=== PATIENT | male | born 1950 | race Caucasian/White ===

== ENCOUNTER → 2016-05-14 | Outpatient (CLI) | payer BC ==
[2016-05-14 12:00] LABS: EKG EKG PERFORMED
[2016-05-14 12:28] LABS: Basophils % (A) 1 %; CH 31.4; CHCM 34.1; Eosinophils % (A) 1 %; HDW 2.37; Luc # (Auto) 0.09; Luc % (Auto) 2; Lymphocytes # (A) 1.4 k/uL (1.0-4.8); Lymphocytes % (A) 24 %; MCH 30.8 pg (25.0-35.0); MCHC 33.3 g/dL (31.0-37.0); MCV 92.6 fL (80.0-100.0); Mean Platelet Volume 6.3; Monocytes # (A) 0.4 k/uL (0-1.0); Monocytes % (A) 6 %; Neutrophils # (A) 3.9 k/uL (1.3-7.7); Neutrophils % (A) 68 %; RBC 4.86 m/uL (4.30-5.90); RDW 12.4 % (11.5-15.5); WBC 5.8 k/uL (3.8-10.6); WBC (Perox) 5.73
[2016-05-14 12:36] LABS: Partial Thromboplastin Time 24.5 sec (22.0-30.0); Prothrombin Time 10.3 sec (9.0-12.0)
[2016-05-14 12:42] LABS: Appearance,Urine Clear (Clear); Bilirubin,Urine Negative (Negative); Glucose,Urine (UA) Negative (Negative); Ketones,Urine Negative (Negative); Leukocyte Esterase,Urine Negative (Negative); Nitrite,Urine Negative (Negative); PH, Urine 5.5 (5.0-8.0); Protein,Urine Negative (Negative); Specific Gravity,Urine 1.011 (1.001-1.035); UA Billing (MACRO vs. MICRO) CHEM; Urobilinogen,Urine <2.0 mg/dL (<2.0)
[2016-05-14 12:49] LABS: ALT 29 U/L (21-72); AST 21 U/L (17-59); Alkaline Phosphatase 72 U/L (38-126); Anion Gap 12 mmol/L; Blood Urea Nitrogen 23 mg/dL (9-20); Calcium 10.2 mg/dL (8.4-10.2); Carbon Dioxide 28 mmol/L (22-30); Chloride 104 mmol/L (98-107); Glucose 126 mg/dL (74-99); Non-African American GFR(MDRD) >60 (>60 ml/min/1.73 sqM); Potassium 5.2 mmol/L (3.5-5.1); Sodium 144 mmol/L (137-145); Total Bilirubin 1.3 mg/dL (0.2-1.3); Total Protein 8.5 g/dL (6.3-8.2)
== END | disposition home or self-care (01) ==
LOC: LABWHC1 11:49
PROVIDERS: ATTEND Orthopaedic Surgery
DX: Z01.810 Encounter for preprocedural cardiovascular examination (principal); Z01.812 Encounter for preprocedural laboratory examination
CPT/HCPCS: 80053; 81003; 85025; 85610; 85730; 86850; 86900; 86901; 87070; 93005

== ENCOUNTER 2016-05-25 05:50 | Inpatient (IN) | payer BC ==
[2016-05-17 16:18] VITALS: BMI 29.9
[~2016-05-25 05:50] MED LIST: ACETAMINOPHEN TAB 500 MG TAB PO ONE; DEXAMETHASONE SOD PHOSPHATE 10 MG/ML 1 ML VIAL IV ONE; HYDROmorphone 1 MG/ML 1 ML SYRINGE IVP PRN; LACTATED RINGERS 1,000 ML IV SCH; MELOXICAM 7.5 MG TAB PO ONE; MIDAZOLAM 2 MG/2 ML VIAL IV PRN; ONDANSETRON 4 MG/2 ML VIAL IVP ONE; SCOPOLAMINE 1.5MG/72HR PATCH TRANSDERM ONE; TRANEXAMIC ACID 1,000 MG in SODIUM CHLORIDE 0.9% 100 ML IVPB ONE; ceFAZolin 2 GM in SODIUM CHLORIDE 0.9% 100 ML IVPB ONE
[2016-05-25] MEDS ORDERED: LIDOCAINE 1% 20 ML VIAL (10MG/ML) FOR IV START INTRADERMA ONE (06:26)
[2016-05-25] MEDS ORDERED: ROPIVACAINE 246.25 MG, EPINEPHrine 0.5 MG, KETOROLAC 30 MG, cloNIDine HCL/PF 80 MCG, WA... MISCELLANE ONE ×5 (07:00)
[2016-05-25] MEDS ORDERED: SODIUM CHLORIDE 0.9% IRRIG 1,000 ML BTL IRRIGATION ONE (07:49)
[2016-05-25] MEDS ORDERED: TRANEXAMIC ACID 1,000 MG/10 ML VIAL ONE (07:49)
[2016-05-25] MEDS ORDERED: PHENYLEPHRINE-0.9% NACL SYG 1 MG/10 ML SYRINGE ONE (07:49)
[2016-05-25] MEDS ORDERED: SODIUM CHLORIDE 0.9% 100 ML BAG ONE (07:49)
[2016-05-25] MEDS ORDERED: fentaNYL (PF) 50 MCG/ML 2 ML AMP ONE (07:49)
[2016-05-25] MEDS ORDERED: ePHEDrine 50 MG/ML 1 ML AMP ONE (07:49)
[2016-05-25] MEDS ORDERED: PROPOFOL 10 MG/ML 20 ML VIAL IV ONE (07:49)
[2016-05-25] MEDS ORDERED: MIDAZOLAM 2 MG/2 ML VIAL ONE (07:49)
[2016-05-25] MEDS ORDERED: HEPARIN SODIUM,PORCINE 10,000 UNIT/ML 1 ML VIAL ONE (07:49)
[2016-05-25] MEDS ORDERED: LIDOCAINE 1% INJ 10MG/ML (20 ML MDV) ONE (07:49)
[2016-05-25] MEDS ORDERED: ceFAZolin 3,000 MG in SODIUM CHLORIDE 0.9% IRRIGATIO 3,000 ML IRRIGATION ONE (08:06)
[2016-05-25] MEDS ORDERED: LACTATED RINGERS 1,000 ML IV ONE (08:56)
--- NOTE | 2016-05-25 09:59 | P.OP ---
Date of Procedure: 05/25/16 Preoperative Diagnosis: Severe osteoarthritis left hip Postoperative Diagnosis: Severe osteoarthritis left hip Procedure(s) Performed: Left total hip arthroplasty with a direct anterior approach Implants: Bowden and nephew Polarstem size 6 standard [employer]den [employer] Nephew R3, 3 hole acetabular shell, 60 mm [employer]den [employer] Nephew reflection 6.5 mm cancellus screw, 20 mm, 25mm [employer]den [employer] Nephew R3, XLPE 20 acetabular liner Bowden [employer] Nephew Oxinium femoral head 36 m, -3 All components were press-fit. The articulation is ceramic on polyethylene. Anesthesia: spinal Surgeon: David Beltran Sash Maker #1: Dixie Leyva Estimated Blood Loss (ml): 150 (57 mL returned with Cell Saver) Pathology: other (Femoral head) Condition: stable Disposition: PACU Indications for Procedure: After failure of conservative treatment we discussed the surgical and nonsurgical treatment options at length. Patient wishes to proceed with a total hip arthroplasty with a direct anterior approach. Complications specific to this procedure were discussed at length, including but not limited to infection, leg length discrepancy, dislocation, and nerve injury. Patient is aware of all these complications and informed consent was obtained Operative Findings: The operative findings are consistent with severe osteoarthritis of the left hip. Description of Procedure: Patient was seen and evaluated in the preoperative area, consent was reviewed, and the surgical site was marked with a skin marker. Patient was then brought to the operating room and given prophylactic antibiotics intravenously. 1 g of Tranexamic acid was also given. A spinal anesthetic was administered by the anesthesia department. A Richter catheter was then placed by the nursing staff. The patient was then placed on the Aydlett table with the bony prominences well- padded. The hip area was then prepped and draped in usual sterile fashion. A universal timeout was then performed, which confirmed the patient's name, surgical site, ALLERGIES, and procedure being performed. Next the incision site was located at 1 cm distal and 1 cm lateral to the anterior superior iliac spine. The skin and subcutaneous tissues were sharply incised. Incision was carefully dissected down to the fascia overlying the tensor fascia gaston muscle. This fascia was then incised in line with the incision. Next, using blunt finger dissection, the tensor fascia gaston muscle was dissected off its investing fascia. The muscle was then carefully retracted laterally with a cobra retractor over the lateral neck of the femur. Next, the circumflex vessels were identified and cauterized using the AquaMantis device. The anterior hip capsule was then exposed. The capsule was then opened and an inverted T fashion. Retention sutures were placed in the inferior arms of the capsule. Cobra retractors were then placed intracapsularly. The proximal femur was then visualized. The femoral neck was then osteotomized appropriate level above the lesser trochanter. Small amount of traction was placed with the Aydlett table. A small wedge of bone was then removed from the remaining femoral head. Next, using a corkscrew femoral head was easily removed from the acetabulum. On gross visual inspection, the femoral head had complete loss of articular cartilage in multiple periarticular osteophytes. Attention was then turned to the acetabulum. the acetabulum was exposed and any remaining labrum was excised. Sequential reaming of the acetabulum was performed using fluoroscopic guidance. When the appropriate size was reached, a trial was then placed. The position and fit of the trial was checked with fluoroscopy. The trial was then removed. Then, using fluoroscopic guidance, the final implant was impacted at 20 of anteversion and 40 of abduction, and fully seated in the acetabulum. 2 screws were then placed in the acetabulum. Again fluoroscopy was used to check position of the screws. Next, the liner was then impacted, with a 20 elevated liner located in the anterior superior quadrant. Component locking was confirmed. Attention was then directed to the femur. With the aid of the Aydlett table, the femur was externally rotated to approximately 130, extended, and abducted under the opposite leg. A side hook was then placed under the proximal femur, and the side hook elevator was used to elevate the proximal femur. Retractors were then placed. A capsular release was performed, as well as a release of the conjoined tendon, which afforded excellent visualization of the proximal femur. Next, a box osteotome was used to lateralize the proximal femur. A explosive ordnance handler was then used to locate the femoral canal. Sequential broaching was then performed with appropriate size which afforded excellent fixation in the proximal femur. A trial was then placed with appropriate head and neck, and the hip was gently reduced with the aid of the Aydlett table. Fluoroscopy was then used to check position of the components, as well as to ensure equal leg lengths. The hip was then gently dislocated and the trials were then removed. Final implants were then impacted and the hip was again reduced. Final fluoroscopic x-rays confirmed that the components were in anatomic position, as well as equal leg lengths. The hip was also taken through range of motion, and found to be stable. The hip was then copiously irrigated with antibiotic solution with pulsatile lavage. The hip was then irrigated with Irrisept solution. The soft tissues were then injected with a ropivacaine solution, which consisted of 246.25 mg of ropivacaine, 0.5 mg of epinephrine, 30 mg of Toradol, 80 g of clonidine, and 48.45 mL of sterile water, for a total of 100 mL of fluid injected. A second dose of 1 g of Tranexamic acid was also given. the fascia was then closed with 2-0 strata fix suture. The subcutaneous tissue was closed with 3-0 Vicryl. The subcuticular tissue was closed with 3-0 strata fix suture. The skin was then closed with Dermabond tape. The patient was then transferred to the recovery room in stable condition. The investment sales assistant CATHERINE Kay was required due to the complexity of surgery , and the need for skilled instructional assistant for positioning, draping, exposure , retraction, and closure of the wound.
[2016-05-25] MEDS ORDERED: DIAZEPAM 5 MG TAB PO PRN (10:06)
[2016-05-25] MEDS ORDERED: HYDROcodone/APAP 5-325MG 1 EACH TAB PO PRN (10:06)
[2016-05-25] MEDS ORDERED: NALOXONE 0.4 MG/ML 1 ML VIAL IV PRN (10:06)
[2016-05-25] MEDS ORDERED: MAGNESIUM HYDROXIDE 2,400 MG/10 ML CUP PO PRN (10:06)
[2016-05-25] MEDS ORDERED: HYDROmorphone 1 MG/ML 1 ML SYRINGE IVP PRN ×3 (10:06)
--- NOTE | 2016-05-25 10:08 | FL ---
Fluoroscopy History: L ant hip replacement L anterior hip replacement, 1min 20sec fl time
--- NOTE | 2016-05-25 10:16 | XR ---
Fluoroscopy History: L anterior hip replacement 2 paper images demonstrate changes of total left hip arthroplasty with femoral and acetabular compone nts appearing well seated.
--- NOTE | 2016-05-25 10:31 | XR ---
EXAMINATION TYPE: XR Hip Limited LT DATE OF EXAM: 05/25/2016 10:28 AM CLINICAL HISTORY: Postoperative evaluation TECHNIQUE: Single portable view of the left hip was submitted. FINDINGS: Noted are changes of total hip arthroplasty with femoral and acetabular components appearin g well seated. Alignment is anatomic. Postsurgical soft tissue changes are evident. IMPRESSION: Satisfactory postoperative alignment
[2016-05-25] MEDS: SODIUM CHLORIDE 0.9% 1,000 ML IV SCH ×2 (12:14→23:36)
[2016-05-25] MEDS: ceFAZolin 2 GM in SODIUM CHLORIDE 0.9% 100 ML IVPB SCH ×2 (15:26→23:34)
--- NOTE | 2016-05-25 16:17 | P.CONS ---
History of Present Illness - Reason for Consult Consult date: 05/25/16 - Chief Complaint Hip pain - History of Present Illness This is a 65-year-old gentleman who recently came to my office for preoperative clearance for hip dysplasia/gastritis arthritis. Has an underlying history of hypertension which is stable. The patient states no chest pain or shortness of breath. No nausea, vomiting or diarrhea is stated. No voiding symptoms. He is immediately postop and doing quite well. Review of Systems Constitutional: Denies chills, Denies fever Eyes: denies blurred vision, denies pain Ears, nose, mouth and throat: Denies headache, Denies sore throat Cardiovascular: Denies chest pain, Denies shortness of breath Respiratory: Denies cough Gastrointestinal: Denies abdominal pain, Denies diarrhea, Denies nausea, Denies vomiting Musculoskeletal: Denies myalgias Neurological: Denies numbness, Denies weakness Past Medical History Past Medical History: Hypertension, Osteoarthritis (OA) Additional Past Medical History / Comment(s): Sinus Headaches,"IRREGULAR HEARTBEAT AT TIMES" History of Any Multi-Drug Resistant Organisms: None Reported Past Surgical History: Orthopedic Surgery Additional Past Surgical History / Comment(s): Pin in great left toe Past Anesthesia/Blood Transfusion Reactions: No Reported Reaction Past Psychological History: No Psychological Hx Reported Smoking Status: Never smoker Past Alcohol Use History: Rare Past Drug Use History: None Reported - Past Family History Mother Family Medical History: No Reported History Medications and Allergies Home Medications Medication Instructions Recorded Confirmed Type Aspirin 81 mg PO DAILY 01/04/14 05/25/16 History Losartan/Hydrochlorothiazide 1 tab PO DAILY 01/04/14 05/25/16 History [Hyzaar 100-25 Tablet] Naproxen Sodium [Aleve] 440 mg PO BID PRN 05/17/16 05/25/16 History Acetaminophen Tab [Tylenol Tab] 650 mg PO Q4H PRN 05/22/16 05/25/16 History Allergies Allergy/AdvReac Type Severity Reaction Status Date / Time No Known Allergies Allergy Verified 05/17/16 15:57 Physical Exam Vitals: Vital Signs Temp Pulse Resp BP Pulse Ox 05/25/16 13:15 70 108/58 05/25/16 13:00 68 109/73 05/25/16 12:45 73 113/67 05/25/16 12:30 70 118/71 05/25/16 12:15 71 136/72 05/25/16 12:00 74 117/71 05/25/16 11:45 70 117/72 05/25/16 11:30 70 111/75 05/25/16 11:15 97.7 F 71 17 100/59 95 05/25/16 10:50 72 16 102/65 96 05/25/16 10:35 74 16 101/56 95 05/25/16 10:20 69 16 102/68 95 05/25/16 10:05 97.4 F L 77 14 93/56 93 L 05/25/16 06:12 98.7 F 73 16 162/75 98 Intake and Output 05/25/16 05/25/16 05/25/16 06:59 14:59 22:59 Intake Total 950 1351 Output Total 150 Balance 950 1201 Intake: IV 950 1351 Sodium Chloride 0.9% 1, 300 000 ml @ 100 mls/hr IV . Q10H KATELYNN Rx#:[id number] Output: Estimated Blood Loss 150 Other: Weight 97.522 kg Patient Weight 05/26/16 06:59 Weight 97.522 kg - Constitutional General appearance: no acute distress - EENT Eyes: EOMI - Neck Neck: no lymphadenopathy - Respiratory Respiratory: bilateral: CTA - Cardiovascular Rhythm: regular Heart sounds: normal: S1, S2 - Gastrointestinal General gastrointestinal: soft, no tenderness - Integumentary Integumentary: no rash Results CBC & Chem 7: 05/25/16 06:25 Assessment and Plan (1) Hip osteoarthritis Status: Acute (2) Hypertension Status: Acute Plan: Continue home medication. Dr. Peña covering weekend. See orders otherwise. Check CBC and CMP in a.m. Time with Patient: Less than 30
[2016-05-25] MEDS: HYDROcodone/APAP 5-325MG 1 EACH TAB PO PRN ×2 (17:19→22:41)
[2016-05-25] MEDS: ASPIRIN 325 MG TAB PO SCH (20:06)
[2016-05-25] MEDS ORDERED: SENNOSIDES-DOCUSATE SODIUM 1 EACH TAB PO SCH (21:00)
[2016-05-26 01:04] VITALS: RESP 16
[2016-05-26] MEDS: HYDROcodone/APAP 5-325MG 1 EACH TAB PO PRN ×2 (07:37→13:11)
[2016-05-26] MEDS: SODIUM CHLORIDE 0.9% 1,000 ML IV SCH (07:38)
[2016-05-26] MEDS: hydrOXYzine PAMOATE 25 MG CAP PO PRN ×2 (07:38→13:12)
[2016-05-26] MEDS: ASPIRIN 325 MG TAB PO SCH (07:40)
[2016-05-26 08:08] LABS: Basophils # (A) 0.1 k/uL (0-0.2); Basophils % (A) 1 %; CH 31.6; CHCM 34.6; Eosinophils % (A) 0 %; HCT 33.2 % (39.0-53.0); HDW 2.38; Luc # (Auto) 0.18; Luc % (Auto) 2; Lymphocytes # (A) 1.2 k/uL (1.0-4.8); Lymphocytes % (A) 13 %; MCH 30.9 pg (25.0-35.0); MCHC 33.6 g/dL (31.0-37.0); MCV 91.9 fL (80.0-100.0); Mean Platelet Volume 7.2; Monocytes # (A) 0.8 k/uL (0-1.0); Monocytes % (A) 9 %; Neutrophils # (A) 7.1 k/uL (1.3-7.7); Neutrophils % (A) 76 %; RBC 3.62 m/uL (4.30-5.90); RDW 12.6 % (11.5-15.5); WBC 9.4 k/uL (3.8-10.6); WBC (Perox) 10.32
[2016-05-26 08:10] LABS: HGB 11.2 gm/dL (13.0-17.5)
[2016-05-26] MEDS ORDERED: HCTZ PO SCH (09:00)
[2016-05-26] MEDS ORDERED: MELOXICAM 7.5 MG TAB PO SCH (09:00)
[2016-05-26] MEDS ORDERED: LOSARTAN PO SCH (09:00)
[2016-05-26] MEDS ORDERED: LOSARTAN-HCTZ 50-12.5 MG 1 EACH TAB PO SCH (09:00)
[2016-05-26 09:24] VITALS: BP 128/64; PULSE 71; TEMP 98
--- NOTE | 2016-05-26 10:31 | P.DS ---
Providers Date of admission: 05/25/16 05:50 Expected date of discharge: 05/26/16 Attending physician: David Beltran Consults: 05/25/16 10:06 Consult Physician Routine Consulting Provider: Vinnie Virk Consult Reason/Comments: medical management Do you want consulting provider notified?: Yes Primary care physician: Stated None - Discharge Diagnosis(es) (1) Primary osteoarthritis of left hip Current Visit: Yes Status: Acute (2) Status post total replacement of left hip Current Visit: Yes Status: Acute Hospital Course: This is a 65-year-old male with known history of degenerative arthritis of the left hip. The patient presents for evaluation. After discussion and consideration patient elects to proceed with total hip arthroplasty. The patient is seen preoperatively by Dr. Virk and cleared for surgery. Patient is admitted to [facility] on 05/25/2016 for total hip arthroplasty. The procedures performed without complication or sequelae. The patient is doing well postoperatively. Labs and vital signs are stable on day of discharge. On day of discharge patient's hip incision is healing well. There is minimal erythema. There is no drainage noted at this time. There is minimal soft tissue swelling to the hip and thigh. Patient has full foot and ankle motion without difficulty or pain. Neurovascular status to the left lower extremity is intact. Patient is discharged to home in good condition. Please see med rec for accurate list of home medications. Patient Condition at Discharge: Good Plan - Discharge Summary New Discharge Prescriptions: Aspirin 325 mg PO BID #60 tab HYDROcodone/APAP 5-325MG [[place] 5-325] 1 - 2 each PO Q4-6H PRN #90 tab PRN Reason: Pain Sennosides-Docusate Sodium [Senokot-S] 1 tab PO BID #60 tablet Discharge Medication List Aspirin 81 mg PO DAILY 01/04/14 [History] Losartan/Hydrochlorothiazide [Hyzaar 100-25 Tablet] 1 tab PO DAILY 01/04/14 [ History] Naproxen Sodium [Aleve] 440 mg PO BID PRN 05/17/16 [History] Acetaminophen Tab [Tylenol Tab] 650 mg PO Q4H PRN 05/22/16 [History] Aspirin 325 mg PO BID #60 tab 05/26/16 [Rx] HYDROcodone/APAP 5-325MG [[place] 5-325] 1 - 2 each PO Q4-6H PRN #90 tab 05/26/16 [Rx] Sennosides-Docusate Sodium [Senokot-S] 1 tab PO BID #60 tablet 05/26/16 [Rx] Follow up Appointment(s)/Referral(s): Vinnie Virk MD [STAFF PHYSICIAN] - 1 Week David Beltran DO [Doctor of Osteopathic Medicine] - 2 Weeks Patient Instructions/Handouts: Total Hip Replacement (DC) Activity/Diet/Wound Care/Special Instructions: May bear weight as tolerated with walker. May shower if no drainage from incision. Discharge Disposition: HOME WITH HOME HEALTH SERVICES
== END 2016-05-26 13:49 | disposition home health service (06) | DRG 470 ==
LOC: 2ORMAIN 05:50 → 3SUR 11:39
PROVIDERS: ADMIT Orthopaedic Surgery; ATTEND Orthopaedic Surgery
PROC: 0SRB04A Replacement of Left Hip Joint with Ceramic on Polyethylene Synthetic Substitute, Uncemented, Open Approach (ICD-10-PCS; principal; 2016-05-25 07:30)
DX: M16.12 Unilateral primary osteoarthritis, left hip (principal); I10 Essential (primary) hypertension; Z79.82 Long term (current) use of aspirin; Q65.89 Other specified congenital deformities of hip
CPT/HCPCS: 73501; 84132; 85025; 86850; 86891; 86900; 86901; 88300

== ENCOUNTER → 2017-07-29 | Day surgery (SDC) | payer BC, MEDICARE ==
[2017-07-25 15:01] VITALS: BMI 27.8
[~2017-07-29] MED LIST changes: -ACETAMINOPHEN TAB 500 MG TAB PO ONE; -DEXAMETHASONE SOD PHOSPHATE 10 MG/ML 1 ML VIAL IV ONE; -HYDROmorphone 1 MG/ML 1 ML SYRINGE IVP PRN; +LIDOCAINE 1% 20 ML VIAL (10MG/ML) FOR IV START INTRADERMA PRN; -MELOXICAM 7.5 MG TAB PO ONE; -MIDAZOLAM 2 MG/2 ML VIAL IV PRN; -ONDANSETRON 4 MG/2 ML VIAL IVP ONE; +PROPOFOL 10 MG/ML 20 ML VIAL IV ONE; -SCOPOLAMINE 1.5MG/72HR PATCH TRANSDERM ONE; -TRANEXAMIC ACID 1,000 MG in SODIUM CHLORIDE 0.9% 100 ML IVPB ONE; -ceFAZolin 2 GM in SODIUM CHLORIDE 0.9% 100 ML IVPB ONE
[2017-07-29 09:32] VITALS: RESP 16; TEMP 97.4
--- NOTE | 2017-07-29 09:44 | P.GSHP ---
History of Present Illness H&P Date: 07/29/17 Chief Complaint: Screening colonoscopy This is a 67-year-old male referred from Dr. Beatris ellis. Patient presents today for screening colonoscopy. His last colonoscopy was over 10 years ago. He denies a significant complains. Past Medical History Past Medical History: Hypertension, Musculoskeletal Disorder, Osteoarthritis (OA ) Additional Past Medical History / Comment(s): Sinus Headaches,"IRREGULAR HEARTBEAT AT TIMES" History of Any Multi-Drug Resistant Organisms: None Reported Past Surgical History: Joint Replacement, Orthopedic Surgery Additional Past Surgical History / Comment(s): Pin in great left toe , LT MARY, CTR-RT WRIST, COLONOSCOPY Past Anesthesia/Blood Transfusion Reactions: No Reported Reaction Smoking Status: Never smoker - Past Family History Mother Family Medical History: No Reported History Medications and Allergies Home Medications Medication Instructions Recorded Confirmed Type Losartan/Hydrochlorothiazide 1 tab PO DAILY 01/04/14 07/25/17 History [Hyzaar 100-25 Tablet] Aspirin EC [Ecotrin Low Dose] 81 mg PO DAILY 07/25/17 07/25/17 History Allergies Allergy/AdvReac Type Severity Reaction Status Date / Time No Known Allergies Allergy Verified 07/29/17 09:20 Surgical - Exam Vital Signs Temp Pulse Resp BP Pulse Ox 97.4 F L 58 L 16 126/73 100 07/29/17 09:30 07/29/17 09:30 07/29/17 09:30 07/29/17 09:30 07/29/17 09:30 - General well developed, no distress - Eyes PERRL - ENT normal pinna - Neck no masses - Respiratory normal expansion - Cardiovascular Rhythm: regular - Abdomen Abdomen: soft, non tender Assessment and Plan Assessment: We'll perform screening colonoscopy.
--- NOTE | 2017-07-29 10:08 | P.OP ---
Date of Procedure: 07/29/17 Preoperative Diagnosis: Screening colonoscopy Postoperative Diagnosis: Diverticulosis Procedure(s) Performed: Colonoscopy Anesthesia: MAC Surgeon: Cristian Kam Pathology: none sent Condition: stable Disposition: PACU Description of Procedure: The patient's placed on the endoscopy table lateral position. He received IV sedation. Digital rectal exam was performed which revealed no abnormalities. The flexible colonoscope was then placed patient anus passed throughout the colon. The scope could not be placed in the cecum secondary to tortuosity valve. Several times made to maneuver the colon colonoscope however this and possible. Scope was withdrawn. The distal descending colon appeared normal. The transverse colon appeared normal. The descending; had mild diverticular changes. The scope was then brought back the rectum and this appeared normal. Scope was withdrawn for patient. Patient was scheduled for a barium enema.
[2017-07-29 10:47] VITALS: BP 112/70; PULSE 56
--- NOTE | 2017-07-29 12:09 | FL ---
EXAMINATION TYPE: FL barium enema DATE OF EXAM: 07/29/2017 COMPARISON: NONE HISTORY: Incomplete colonoscopy TECHNIQUE: A double contrast barium enema study is performed. FINDINGS: Business Process Associate view of the abdomen shows overall non-obstructive bowel gas pattern. There is extens alan retained air within the colon which may result in a hairline prior to barium enema. Degenerative change of the spine noted. Postsurgical change left hip. Small amount of contrast was instilled into the colon. There was an air lock from the retained air wi thin the colon and therefore the procedure was discontinued. IMPRESSION: Discontinued barium enema due to the excessive amount of air from the colonoscopy result ing in neurologic. The barium enema will be rescheduled.
== END ==
LOC: ORWHC2ENDO 08:16
PROVIDERS: ATTEND Surgery
DX: Z12.11 Encounter for screening for malignant neoplasm of colon (principal); K57.30 Diverticulosis of large intestine without perforation or abscess without bleeding; Q43.8 Other specified congenital malformations of intestine; I10 Essential (primary) hypertension; M19.90 Unspecified osteoarthritis, unspecified site; Z79.82 Long term (current) use of aspirin; Z79.899 Other long term (current) drug therapy
CPT/HCPCS: 74270; J2704; G0121

== ENCOUNTER → 2023-07-22 | Outpatient (CLI) | payer MEDICARE ==
--- NOTE | 2023-07-22 13:52 | CA ---
Exercise Stress Test Report Name: David Cary Exam Date: 07/22/2023 08:36 Exam Location: [place] Stress Ht (in): 71 Wt (lb): 190 BSA: 2.06 Ordering Phys: Vinnie Virk MD Referring Phys: vinnie virk Technologist: Daniel Mullen Age: 73 Gender: M : 1950 Procedure CPT: Indications: R07.89 atyrical chest pain ICD-10 Codes: Patient History: CHEST PAIN, DIFFICULTY IN BREATHING, HTN, FAMILY HX OF HEART DISEASE Medications: LOSARTAN Meds past 24 hrs: Pretest Chest Pain: STRESS TEST Balaji Protocol Exercise Duration (min:sec): 08:[address] Depressions (mm): Angina Score: Brannon Score: Resting HR (bpm): 190 Peak HR (bpm): 142 Resting BP (mmHg): 147 / 80 Peak BP (mmHg): 201 / 73 MPHR: 149 Target HR: 127 % MPHR: 95 METS: 10.3 Total Dose: Peak Dose: Atropine: Double Product: 70658 BP Response: Stress Termination: MAX EXERTION/TARGET HR Stress Symptoms: NO SYMPTOMS Stress Summary: ECG ANALYSIS Resting ECG: Stress ECG: CONCLUSIONS Good exercise tolerance. The patient exercised for 8 minutes EKG changes in response to exercise with horizontal ST segment depression at peak exercise Dr. Clark Carvajal MD (Electronically Signed) Final Date: 22 July 2023 13:51
== END | disposition home or self-care (01) ==
LOC: RADNMMAIN 08:18
PROVIDERS: ATTEND Family Medicine
DX: R07.89 Other chest pain (principal); I10 Essential (primary) hypertension; R06.00 Dyspnea, unspecified; Z82.49 Family history of ischemic heart disease and other diseases of the circulatory system
CPT/HCPCS: 93017

== ENCOUNTER → 2023-08-26 | Outpatient (CLI) | payer MEDICARE ==
[2023-08-26 10:53] LABS: HCT 40.9 % (39.6-50.0); HGB 13.4 g/dL (13.0-17.0); MCH 31.2 pg (27.0-32.0); MCHC 32.8 g/dL (32.0-37.0); MCV 95.1 FL (80.0-97.0); Mean Platelet Volume 9.7 FL (9.5-12.2); NRBC Per 100 WBC 0 X 10*3/uL (0.00-0.01); Platelet Count 307 X 10*3/uL (140-440); RDW 12.9 % (11.5-14.5); WBC 5.53 X 10*3/uL (4.50-10.00)
[2023-08-26 10:59] LABS: ALT 17 U/L (10-49); AST 25 U/L (14-35); BUN/Creat Ratio 24.55 Ratio (12.00-20.00); Calcium 10.1 mg/dL (8.7-10.3); Carbon Dioxide 23.4 mmol/L (21.6-31.8); Chloride 106 mmol/L (96-109); Chol/HDL Ratio 2.85 Ratio; Glucose 116 mg/dL (70-110); LDL Cholesterol,Calculated 96.8 mg/dL (0.0-131.0); Potassium 4.8 mmol/L (3.5-5.5); Sodium 140 mmol/L (135-145); VLDL Calculation 11.56 mg/dL (5.00-40.00)
== END | disposition home or self-care (01) ==
LOC: LABWHC1 07:01
PROVIDERS: ATTEND Internal Medicine Cardiovascular Disease
DX: E78.2 Mixed hyperlipidemia (principal); R07.2 Precordial pain
CPT/HCPCS: 36415; 80048; 80061; 84450; 84460; 85027

== ENCOUNTER → 2024-04-17 | Day surgery (SDC) | payer MEDICARE ==
[2024-04-15 12:15] VITALS: BMI 27.1
[~2024-04-17] MED LIST changes: +DEXAMETHASONE SOD PHOSPHATE 4 MG/ML 1 ML VIAL ONE; +HYDROmorphone 0.5 MG/0.5 ML SYRINGE IVP PRN; -LACTATED RINGERS 1,000 ML IV SCH; -LIDOCAINE 1% 20 ML VIAL (10MG/ML) FOR IV START INTRADERMA PRN; +LIDOCAINE 1% INJ 10MG/ML (20 ML MDV) ONE; +ROPIVACAINE 5 MG/ML 30 ML VIAL ONE; +ePHEDrine 50 MG/ML 1 ML VIAL ONE; +fentaNYL (PF) 50 MCG/ML 2 ML AMP ONE
[2024-04-17] MEDS: IV FLUID CONTINUATION 1,000 ML IV ONE (06:30)
[2024-04-17] MEDS: LACTATED RINGERS 1,000 ML IV SCH (06:42)
[2024-04-17] MEDS: ONDANSETRON 4 MG/2 ML VIAL IVP ONE (06:42)
[2024-04-17] MEDS: DEXAMETHASONE SOD PHOSPHATE 4 MG/ML 1 ML VIAL IV ONE (06:42)
[2024-04-17] MEDS: MIDAZOLAM 2 MG/2 ML VIAL IV STA (06:59)
[2024-04-17] MEDS: LACTATED RINGERS 1,000 ML IV ONE (07:48)
[2024-04-17] MEDS: HEPARIN SODIUM 1,000 UN/ML (10ML VL) MISCELLANE ONE (07:51)
[2024-04-17 10:04] VITALS: TEMP 97.4
[2024-04-17] MEDS: SODIUM CHLORIDE 0.9% 1,000 ML IV ONE (11:20)
--- NOTE | 2024-04-17 11:25 | P.OP ---
Date of Procedure: 04/17/24 Preoperative Diagnosis: 1. Primary osteoarthritis of right foot 2. Acquired deformity of right foot 3. Gastroc equinus right leg Postoperative Diagnosis: 1. Same 2. Same 3. Same Procedure(s) Performed: 1. Subtalar joint arthrodesis right foot 2. Talonavicular joint arthrodesis right foot 3. Gastroc recession right leg 4. Bone marrow aspiration right leg Implants: Arthrex 7.0 mm headless screws x 2 Arthrex 5.0 mm headless screw x 1 Arthrex 20 x 20 mm compression staple x 1 10 cc of Arthrex Allosync pure Surgeon: Andreas Waters Estimated Blood Loss (ml): 60 Pathology: none sent Condition: stable Disposition: PACU Description of Procedure: Prior to the patient being brought to the operating room, anesthesia administered a nerve block on the right lower extremity. The patient was brought into the op room and placed on the table in the supine position. Timeout was taken to confirm correct patient identifiers, correct laterality of surgery, and correct procedure. Once all staff in the room was in agreement with the timeout, the patient was induced and placed under general anesthesia. A well-padded tourniquet was placed on the patient's right thigh and a wedge beneath the right hip to internally rotate the right leg. The right leg was then prepped and draped in the usual manner. Attention was directed to the anterior medial tibia just proximal to the ankle joint. A small stab incision was made, the soft tissue retracted, and then a trocar needle was inserted into the medullary canal of the tibia. Appropriately prepped syringes were then used to aspirate approximately 60 mL of marrow aspirate. The syringes were passed off the surgical field to be spun down to the concentrated bone marrow aspirate. Once that process was completed, the leg was exsanguinated, the knee flexed and the tourniquet inflated to 250 mmHg. Attention was directed over the lateral hindfoot, where a sinus tarsi incision was made. It was deepened down to the subcutaneous tissue careful to identify, avoid, and retract any neurovascular structures and cauterize any bleeding vessels. Blunt dissection was carried down to the subtalar joint capsule and the sinus tarsi. The capsule was then sharply incised and reflected superiorly and inferiorly to expose the joint. The lateral collateral ligaments were released to allow for easy access to the joint. Pins for the distractor were placed in the talus and calcaneus. The distractor was applied and used to sepa rate the joint. A bone resection bur was then utilized to remove the articular cartilage as well as a subchondral bone on the conjoining surfaces of the talus and calcaneus. Once adequate resection was completed, the area was aggressively fenestrated with a wire to remove bleeding. Then attention was directed over the medial side of the foot where a linear incision was made over the talonavicular joint. The incision was deepened down to the subcutaneous tissue careful to identify, void, and retract any neurovascular structures and cauterize any bleeding vessels. Blunt dissection was carried down to the joint capsule. A linear incision was made through the capsule superior to the posterior tibial tendon insertion. The soft tissue was reflected medially and dorsally to expose the talonavicular joint. The pins for the distractor were inserted in the talus and the navicular and used to open the joint. Various osteotomes were used to remove the articular cartilage on the talus and navicular. Then a bone resection bur was used to remove remove the remaining cartilage as well as a subchondral bone, down to bleeding medullary bone. Once adequate resection was achieved, the conjoined surfaces were aggressively fenestrated with a wire. The bone marrow aspirate was then prepared and mixed with bone allograft. This was first placed between the talonavicular joints. Then the joint was corrected and positioned in a guidewire for a 5.0 millimeter screw was placed at the junction of the medial cuneiform and the navicular and advanced through the navicular and into the talus. Fluoroscopic imaging confirmed the proper placement and trajectory of the wire. With that wire in place, attention was directed to the subtalar joint where the same bone graft material was inserted into the arthrodesis site. Then the subtalar joint was held in a way to keep the calcaneus in line with the tibia. Then guidewires for 7.0 mm headless screws were inserted into the posterior medial aspect of the calcaneus, just distal to the Achilles insertion. The wires were advanced in a direction across the subtalar joint and into the talar body. Both wires were placed parallel and with enough space to accommodate the screws. Fluoroscopic imaging showed proper placement of the screws on multiple views. Small stab incisions were made through the skin to accommodate the drill bit the screws. Drilling was performed first and then the screws were inserted over the wires and advanced until the wires fully engage the bone and were flush to the posterior cortex of the calcaneus. There was excellent purchase of both screws. There was no movement of the subtalar joint when tested. And fluoroscopy showed compression of the joint. Attention was redirected back to the talonavicular joint, where the pin was removed and the joint adjusted again for position until it was ideal under fluoroscopy. Then the pin was reinserted in a similar matter and confirmed under fluoroscopy. Drilling for a 5.0 mm headless screw was performed and then the screw was inserted over the wire and advanced until this threads engaged the navicular and provided compression across the joint. The screw purchase very well and provided excellent compression across the joint both visually and under fluoroscopy. At the dorsal lateral aspect of the talonavicular joint, drilling for a compression staple was performed. After drilling temporary pins were placed and then those pins positions were checked under fluoroscopy to make sure they were in proper alignment to the joint. Then the staple, with his legs in the neutral position were inserted and then the epilepsy physician was removed to allow the legs to compress. The staple was impacted as it was flush with the bone. Fluoroscopy showed that the stable was properly aligned. Both wounds were thoroughly irrigated with antibiotic saline. Deep capsular closure for both incisions was done with 0 Vicryl. Subcutaneous closure was done with 4-0 Monocryl. Skin closure was done with candy. Then attention was directed to the posterior calf. A linear incision was made medial to the midline beginning just proximal to the gastroc muscle belly. The incision was deepened down to the subcutaneous tissue careful to identify, void, and retracting neurovascular structures and cauterize any bleeding vessels. Blunt dissection was carried down to the fascia overlying the aponeurosis. The fascia was incised and bluntly dissected off the aponeurosis. A transverse incision was made through the aponeurosis from lateral to medial taking care to preserve the underlying muscle belly. Once that was completed the ankle was dorsiflexed and a 2 cm gap was created at the site. The wound was then thoroughly irrigated with antibiotic saline. Subcutaneous closure done with 4-0 Monocryl. Skin closure done with candy. Arthrex jumpstart was placed over all the incisions and then a bulky dry dressing is applied to the right foot and leg the tourniquet was released and capillary refill returned all digits on the right foot. The patient was placed in a well-padded, well molded plaster posterior mold/sugar-tong splint with the ankle and foot in neutral position is a dried. Anesthesia was reversed and the patient was taken recovery with vital signs stable.
[2024-04-17 12:11] VITALS: BP 115/74; PULSE 69; RESP 18
--- NOTE | 2024-04-19 16:49 | P.ANPRN ---
Procedure Note - Anesthesia - Nerve Block Performed Right Adductor Canal Single Time Out Performed: Yes Date of Procedure: 04/17/24 Procedure Start Time: 06:58 Procedure Stop Time: 07:02 Location of Patient: PreOp Indication: Acute Post-Operative Pain, Requested by Surgeon Sedation Type: Sedate with meaningful contact maintained Preparation: Sterile Prep Position: Supine Needle Types: Pajunk Needle Gauge: 21 Ultrasound used to visualize needle placement: Yes Ultrasound used to observe medication spread: Yes Blood Aspirated: No Pain Paresthesia on Injection Noted: No Resistance on Injection: Normal Image Stored and Saved: Yes Events: Uneventful and Well Tolerated (Ropivacaine 0.5% 20 cc plus dexamethasone 4 mg)
--- NOTE | 2024-04-19 16:50 | P.ANPRN ---
Procedure Note - Anesthesia - Nerve Block Performed Right Popliteal Single Time Out Performed: Yes Date of Procedure: 04/17/24 Procedure Start Time: 07:03 Procedure Stop Time: 07:06 Location of Patient: PreOp Indication: Acute Post-Operative Pain, Requested by Surgeon Sedation Type: Sedate with meaningful contact maintained Preparation: Sterile Prep Position: Left Lateral Needle Types: Pajunk Needle Gauge: 21 Ultrasound used to visualize needle placement: Yes Ultrasound used to observe medication spread: Yes Blood Aspirated: No Pain Paresthesia on Injection Noted: No Resistance on Injection: Normal Image Stored and Saved: Yes Events: Uneventful and Well Tolerated (Ropivacaine 0.5% 20 cc was dexamethasone 4 mg)
== END | disposition home or self-care (01) ==
LOC: OR 05:32
PROVIDERS: ATTEND Podiatrist
DX: M19.071 Primary osteoarthritis, right ankle and foot (principal); M62.461 Contracture of muscle, right lower leg; M21.961 Unspecified acquired deformity of right lower leg; G89.18 Other acute postprocedural pain
CPT/HCPCS: 28725; 28740; 27687; 38220; 64447 ×2; 64445; C1713; J2250; J1100; J0690; J2405; J2003; J3010; J1644; J2795; J2704

== ENCOUNTER → 2024-08-13 | Outpatient (CLI) | payer MEDICARE ==
--- NOTE | 2024-08-13 08:31 | CT ---
EXAMINATION TYPE: CT ankle RT wo con DATE OF EXAM: 08/13/2024 8:03 AM COMPARISON: No radiographic correlation available. 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 Recent sx in March, broken hardware. TECHNIQUE: CT of the right ankle without IV contrast. Additional coronal and sagittal reformatted aki ges and soft tissue and bone window were obtained for review. 3-D reconstruction was created on a [employer] workstation. CT DLP: 230.90 mGycm, Automated exposure control for dose reduction was used. FINDINGS: [id number] posttraumatic degenerative change at the tibiotalar joint with some eccentric anteri or joint space narrowing and marginal spurring. Punctate posterior loose bodies and suggestion of mod erate posterior joint effusion or synovitis. There is 2 cannulated screw fixation across the posterior subtalar joint. Along the fixation screws a nd just medial to the screws, there appears to be areas of satisfactory bony bridging, sagittal image 27. Small bony bridging between the anterior process of the calcaneus and the navicular bone, sagittal im age 27. Large surgical staple present dorsally across the talonavicular joint with small area of bony bridgin g laterally, sagittal image 23. There is also an AP direct a cannulated screw across the talonavicula r joint which is fractured through its midportion embedded within the talus. Prominent bony irregular ity along most of the talonavicular joint margins. Smooth delineation of the Achilles tendon. Some generalized soft tissue swelling. IMPRESSION: 1. Surgical arthrodesis posterior subtalar joint with 2 screws. Small areas of bony bridging along th e screws and just medial to the screws and also across the anterior calcaneal process to the navicula r. 2. Additional surgical arthrodesis of the talonavicular joint with a dorsal surgical staple and a sin gle AP directed cannulated screw. This AP directed screw is fractured at its midpoint where it is emb edded within the talus. Small bony ankylosis laterally along the talonavicular joint. 3. 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 [facility], , 08/13/2024 8:28 AM
== END | disposition home or self-care (01) ==
LOC: RADCTMAIN 07:41
PROVIDERS: ATTEND Podiatrist
DX: Z48.89 Encounter for other specified surgical aftercare (principal); S82.891A Other fracture of right lower leg, initial encounter for closed fracture; M96.0 Pseudarthrosis after fusion or arthrodesis; M19.171 Post-traumatic osteoarthritis, right ankle and foot; M65.971 Unspecified synovitis and tenosynovitis, right ankle and foot; M24.671 Ankylosis, right ankle; Z98.1 Arthrodesis status; X58.XXXA Exposure to other specified factors, initial encounter